=== PATIENT | female | born 1960 | race Caucasian/White ===

== ENCOUNTER 2024-04-26 18:06 | Emergency (ER) | payer MEDICARE, MEDICAID ==
[~2024-04-26] VITALS: Ht 165.1 cm; Wt 80.0 kg
[2024-04-26 18:08] VITALS: TEMP 101.2
[2024-04-26] MEDS ORDERED: FENTANYL 2500MCG/250ML PMX 250 ML IV ONE (18:30)
[2024-04-26 18:45] VITALS: PULSE 86; RESP 16; O2SAT 97
[2024-04-26] MEDS ORDERED: LACTATED RINGERS 1,000 ML IV SCH ×2 (18:45)
[2024-04-26] MEDS ORDERED: FENTANYL 2500MCG/250ML PMX 250 ML IV PRN (18:45)
[2024-04-26] MEDS: LACTATED RINGERS 1,000 ML IV SCH ×2 (18:46→19:24)
[2024-04-26] MEDS: PROPOFOL 10MG/ML 100ML 100 ML IV SCH ×2 (18:46→21:01)
[2024-04-26] MEDS: NOREPINEPHRINE 8MG/250ML PMX 250 ML IV ONE (19:22)
[2024-04-26] MEDS: PIPERACILLIN/TAZO 3.375G/50ML 50 ML IV SCH (19:24)
[2024-04-26] MEDS: TETANUS, DIPHTHERIA, PERTUSSIS VAC/PF 0.5ML (>10YR OLD) IM ONE (19:25)
[2024-04-26 19:41] LABS: BASOPHILS % 0.4 % (0.0-2.0); EOSINOPHILS % 0.5 % (0.0-5.0); HEMATOCRIT. 37.5 % (36.0-48.0); HEMOGLOBIN. 11.9 g/dL (12.0-16.0); LYMPHOCYTES % 12.3 % (20.0-50.0); MEAN CORPUSCULAR HEMOGLOBIN 29.6 pg (28.0-32.0); MEAN CORPUSCULAR HGB CONC 31.7 g/dL (31.0-37.0); MEAN CORPUSCULAR VOLUME 93.3 fL (81.0-99.0); MEAN PLATELET VOLUME 8.4 fl (7.4-10.4); MONOCYTES % 5.7 % (2.0-8.0); NEUTROPHILS % 81.1 % (40.0-76.0); PLATELET 541 x1000/uL (130-400); RED BLOOD CELL COUNT 4.02 mill/uL (4.2-5.4); RED CELL DISTRIBUTION WIDTH 15.8 % (11.6-14.6); WHITE BLOOD COUNT 19.9 x1000/uL (4.5-11.0)
[2024-04-26 19:48] LABS: CHLORIDE 106 mEq/L (98-107); POTASSIUM 5.2 mEq/L (3.5-5.1); SODIUM 135 mEq/L (136-145)
[2024-04-26 19:49] LABS: CARBON DIOXIDE 21 mEq/L (21-32)
[2024-04-26 19:50] LABS: CALCIUM 7.3 mg/dL (8.7-10.4)
[2024-04-26 19:54] VITALS: PULSE 82; RESP 27; O2SAT 93
[2024-04-26 19:54] LABS: CREATININE 4.1 mg/dL (0.6-1.0); GLUCOSE 61 mg/dL (70-105); UREA NITROGEN BLOOD 36 mg/dL (9-23)
[2024-04-26 19:56] LABS: ALANINE AMINOTRANSFERASE 14 IU/L (10-49); ASPARTATE AMINOTRANSFERASE 78 IU/L (<34)
[2024-04-26 19:57] LABS: BILIRUBIN DIRECT 0.2 mg/dL (<=3.0); BILIRUBIN TOTAL 0.9 mg/dL (0.1-1.0); PROTEIN TOTAL 5.5 g/dL (6.0-8.3)
[2024-04-26 20:05] LABS: PARTIAL THROMBOPLASTIN TIME 31.3 sec (23.4-31.0); PROTHROMBIN TIME 10.9 sec (9.6-11.0)
[2024-04-26 20:07] LABS: CREATINE KINASE 2074 IU/L (34-145)
[2024-04-26] MEDS: DEXTROSE 50% WATER 50ML SYRINGE IV ONE (20:53)
[2024-04-26 21:01] VITALS: O2SAT 90
[2024-04-26 21:13] VITALS: BP 150/86; PULSE 86; RESP 25; O2SAT 94
== END 2024-04-26 21:13 | disposition short-term general hospital (02) ==
LOC: ER 18:06
DX: T20.20XA Burn of second degree of head, face, and neck, unspecified site, initial encounter (principal); T21.21XA Burn of second degree of chest wall, initial encounter; T21.22XA Burn of second degree of abdominal wall, initial encounter; T24.202A Burn of second degree of unspecified site of left lower limb, except ankle and foot, initial encounter; T24.201A Burn of second degree of unspecified site of right lower limb, except ankle and foot, initial encounter; T22.20XA Burn of second degree of shoulder and upper limb, except wrist and hand, unspecified site, initial encounter; G31.89 Other specified degenerative diseases of nervous system; N17.9 Acute kidney failure, unspecified; E11.9 Type 2 diabetes mellitus without complications; I10 Essential (primary) hypertension; F19.90 Other psychoactive substance use, unspecified, uncomplicated; X08.8XXA Exposure to other specified smoke, fire and flames, initial encounter; Y93.89 Activity, other specified; Y92.89 Other specified places as the place of occurrence of the external cause; Y99.8 Other external cause status
CPT/HCPCS: 36556; 80076; 80048; 82550; 85025; 85384; 85610; 85730; 87040; 36415; 73551; 73060; 73090; 73120; 73590; 73620; 70450; 70486; 72125; 71250; 73700; 74176; 90715; 31500; 90471; 99291; 99292; 71045; 96361; 96374; 96375; J3490; J2543; J2704; 94003; J3010